=== PATIENT | male | born 1970 | race Caucasian/White ===

== ENCOUNTER 2017-12-12 12:08 | Emergency (ER) | payer BC ==
[~2017-12-12] VITALS: Ht 175.3 cm; Wt 84.0 kg
[~2017-12-12 12:08] MED LIST: CEFTIN500 MG PO; HYCODAN SYRUP480 ML PO; INDOCIN25 MG PO; MEDROL DOSEPAK4 MG PO; MUCINEX1200 MG PO; NAPROSYN500 MG PO; NOHOMEMEDS; NORCO 7.5/321 TABLET PO; PREDNISONE20 MG PO; PRILOSEC20 MG; TESSALON PERLE100 MG PO; VALIUM5 MG PO; VENTOLIN HFA18 GM IH; VICODIN 5-3001 EACH PO; ZANTAC150 M2 PO; ZANTAC150 MG PO; ZITHROMAX Z-PA250 MG PO; ZYRTEC10 M3 PO
[2017-12-12 13:28] LABS: HEMATOCRIT 46.1 % (38.0-50.0); HEMOGLOBIN 16.1 G/DL (12.5-16.6); MCH 30.3 PG (29.0-34.0); MCHC 34.9 G/DL (30.0-36.0); MCV 86.8 FL (86-99); PLATELET COUNT 230 K/uL (156-360); RBC DIS.WIDTH-CV 12.3 % (11.8-14.6); RBC DIS.WIDTH-SD 39.4 % (39-53); RED BLOOD COUNT 5.31 M/uL (4.00-5.50); WHITE BLOOD COUNT 8.8 K/uL (4.1-10.2)
[2017-12-12 13:36] LABS: CHLORIDE 106 mEq/L (99-109); POTASSIUM 3.9 mEq/L (3.7-5.4); SODIUM 141 mEq/L (136-147)
[2017-12-12 13:38] LABS: GLUCOSE 129 mg/dL (70-99)
[2017-12-12 13:42] LABS: CREATININE 0.8 mg/dL (0.6-1.3); GFR ESTIMATE (CALCULATED) > 59 mL/min/ (58.99-99999)
[2017-12-12 13:43] LABS: UREA NITROGEN (BUN) 12 mg/dL (9-23)
[2017-12-12] MEDS ORDERED: PREDNISONE20 MG PO (14:27)
[2017-12-12] MEDS ORDERED: VENTOLIN HFA18 GM IH (14:27)
[2017-12-12] MEDS ORDERED: ZITHROMAX Z-PA250 MG PO (14:27)
[2017-12-12 14:40] VITALS: BP 119/95
== END 2017-12-12 14:41 | disposition home or self-care (01) ==
LOC: EME 12:08
PROVIDERS: Physician Assistant Medical
DX: J40 Bronchitis, not specified as acute or chronic (principal); J45.909 Unspecified asthma, uncomplicated; F17.200 Nicotine dependence, unspecified, uncomplicated
CPT/HCPCS: 71045; 71046; 80048; 85027; 94640; 99281; 99284

== ENCOUNTER 2018-02-14 05:46 | Day surgery (SDC) | payer BC ==
[~2018-02-14] VITALS: Ht 175.3 cm; Wt 83.5 kg
[2018-02-14 11:46] VITALS: BP 132/88
[2018-02-14 19:42] VITALS: BP 141/80
[2018-02-14 23:45] VITALS: BP 128/80
[2018-02-15 03:45] VITALS: BP 142/80
[2018-02-15 06:43] LABS: BASOPHIL (%) 0.1 % (0-1); EOSINOPHIL (%) 0 % (0-5); HEMATOCRIT 45.3 % (38.0-50.0); HEMOGLOBIN 15.5 G/DL (12.5-16.6); IMMATURE GRANULOCYTE (%) 0.5 % (0.0-0.7); LYMPHOCYTE (%) 14.9 % (15-42); LYMPHOCYTE COUNT 2.4 K/uL (1.0-2.8); MCHC 34.2 G/DL (30.0-36.0); MCV 87.8 FL (86-99); MONOCYTE (%) 8.6 % (3-12); MONOCYTE COUNT 1.4 K/uL (0-0.8); NEUTROPHIL (%) 75.9 % (45-76); NEUTROPHIL COUNT 12.3 K/uL (1.8-6.4); PLATELET COUNT 258 K/uL (156-360); RBC DIS.WIDTH-CV 12.9 % (11.8-14.6); RBC DIS.WIDTH-SD 41.4 % (39-53); RED BLOOD COUNT 5.16 M/uL (4.00-5.50); WHITE BLOOD COUNT 16.2 K/uL (4.1-10.2)
[2018-02-15 07:01] LABS: CHLORIDE 101 MEQ/L (99-109); CREATININE 0.8 MG/DL (0.6-1.3); GFR ESTIMATE (CALCULATED) > 59 mL/min/ (58.99-99999); GLUCOSE 111 mg/dL (70-99); POTASSIUM 4.1 MEQ/L (3.7-5.4); SODIUM 137 MEQ/L (136-147); UREA NITROGEN (BUN) 10 mg/dL (9-23)
[2018-02-15 07:49] VITALS: BP 137/91
[2018-02-15 08:50] VITALS: BP 137/91
[2018-02-15] MEDS ORDERED: HYDROCODON-ACE1 EAC7 PO (09:12)
== END 2018-02-15 10:01 | disposition home or self-care (01) ==
LOC: SDC 05:46 → 2EASTP 10:00 → 2SOUTH 10:00 → ENRESERV 10:01 → SDC 10:41 → ENRESERV 11:10 → 2EASTP 11:40 → SDC 14:08 → 2EASTP 02-15 10:01
PROVIDERS: Student in an Organized Health Care Education/Training Program
DX: K40.91 Unilateral inguinal hernia, without obstruction or gangrene, recurrent (principal); K42.9 Umbilical hernia without obstruction or gangrene; N35.9 Urethral stricture, unspecified; J45.20 Mild intermittent asthma, uncomplicated; K21.9 Gastro-esophageal reflux disease without esophagitis; F17.200 Nicotine dependence, unspecified, uncomplicated; Z82.49 Family history of ischemic heart disease and other diseases of the circulatory system; Z83.3 Family history of diabetes mellitus; Z80.0 Family history of malignant neoplasm of digestive organs; Z80.8 Family history of malignant neoplasm of other organs or systems
CPT/HCPCS: 80048; 85025; C1781; G0378; J0131; J0690; J1100; J1170; J1885; J2405; J2710; J3010; J7120; J7643; S0028